=== PATIENT | female | born 1985 | race Caucasian/White ===

== ENCOUNTER 2017-11-17 14:36 | Emergency (ER) | payer OTHER ==
[2017-11-17 14:52] VITALS: BMI 26.9
[2017-11-17 14:57] VITALS: TEMP 98.3
[2017-11-17] MEDS ORDERED: Sodium Chloride 0.9% 1,000 ML IV STA (14:58)
--- NOTE | 2017-11-17 15:11 | ED PDOC ---
Arrival/HPI - General Chief Complaint: Fever Time Seen by Provider: 11/17/17 14:48 Historian: Patient - History of Present Illness Narrative History of Present Illness (Text): 11/17/17 15:07 32yo female who present with complaint of generalized weakness, subjective fever, vomiting and headache. the by the bedside states she is currently 8weeks and started having the above symptoms this morning. Patient states she feels hot. Notes that she had one episode of nonbloody/bilious vomiting today. Denies neck pain, abdominal pain, chills, URI symptoms, urinary symptoms, vaginal bleeding,sick contact, travel, any other complaint. Past Medical History - Provider Review Nursing Documentation Reviewed: Yes - Infectious Disease Hx of Infectious Diseases: None - Psychiatric Hx Substance Use: No - Surgical History Hx Section: Yes (2) Family/Social History - Physician Review Nursing Documentation Reviewed: Yes Family/Social History: Unknown Family HX Smoking Status: Never Smoked Hx Alcohol Use: No Hx Substance Use: No Allergies/Home Meds Allergies/Adverse Reactions: Allergies No Known Allergies Allergy (Verified 11/17/17 14:58) Home Medications: Home Meds Medication Instructions Recorded Confirmed No Known Home Med 11/17/17 11/17/17 Review of Systems - Physician Review All systems were reviewed & negative as marked: Yes - Review of Systems Constitutional: Fatigue, Fevers Eyes: Normal ENT: Normal Respiratory: Normal Cardiovascular: Normal Gastrointestinal: Nausea, Vomiting. absent: Abdominal Pain, Constipation, Diarrhea, Hematochezia, Hematemesis Genitourinary Female: Normal Musculoskeletal: Normal Skin: Normal Neurological: Headache. absent: Dizziness, Focal Weakness Endocrine: Normal Hemo/Lymphatic: Normal Psychiatric: Normal Physical Exam Vital Signs Reviewed: Yes Vital Signs Temp Pulse Resp BP Pulse Ox 11/17/17 16:51 98.3 F 70 19 120/73 100 11/17/17 14:56 98.3 F 69 18 113/72 98 Temperature: Afebrile Blood Pressure: Normal Pulse: Regular Respiratory Rate: Normal Appearance: Positive for: Well-Appearing, Non-Toxic, Comfortable Pain Distress: None Mental Status: Positive for: Alert and Oriented X 3 - Systems Exam Head: Present: Atraumatic, Normocephalic Pupils: Present: PERRL Extroacular Muscles: Present: EOMI Conjunctiva: Present: Normal Mouth: Present: Moist Mucous Membranes Neck: Present: Normal Range of Motion Respiratory/Chest: Present: Clear to Auscultation, Good Air Exchange. No: Respiratory Distress, Accessory Muscle Use Cardiovascular: Present: Regular Rate and Rhythm, Normal S1, S2. No: Murmurs Abdomen: Present: Other (soft). No: Tenderness, Distention, Peritoneal Signs, Rebound, Guarding, McBurney's Point Tender, Rovsing's Sign Present Back: Present: Normal Inspection Upper Extremity: Present: Normal Inspection. No: Cyanosis, Edema Lower Extremity: Present: Normal Inspection. No: Edema Neurological: Present: GCS=15, CN II-XII Intact, Speech Normal, Motor Func Grossly Intact, Normal Sensory Function, Normal Cerebellar Funct, Norm Deep Tendon Reflexes, Gait Normal, Memory Normal, Normal 2Pt Descrimination, Other ( No focal neurological deficit) Skin: Present: Warm, Dry, Normal Color. No: Rashes Psychiatric: Present: Alert, Oriented x 3, Normal Insight, Normal Concentration Medical Decision Making ED Course and Treatment: 11/17/17 19:40 PT presented to ED with her for stated history. She was offered antiemesis and she declined it in ED. She was hydrated. Lab was reviewed and unremarkable. The states patient saw her OB few days ago. She was advised to f/u with her OB. She denies vaginal bleeding and abdominal pain in ED. She requested to be DC and tolerate PO challenge. - Lab Interpretations Lab Results: 11/17/17 15:02 11/17/17 15:02 Lab Results 11/17/17 15:09: Urine Color Yellow, Urine Appearance Clear, Urine pH 7.0, Ur Specific Holmes 1.015, Urine Protein Trace H, Urine Glucose (UA) Negative, Urine Ketones Negative, Urine Blood Negative, Urine Nitrate Negative, Urine Bilirubin Negative, Urine Urobilinogen 0.2, Ur Leukocyte Esterase Negative, Urine RBC 1 - 3, Urine WBC 2 - 5, Ur Epithelial Cells 6 - 8, Amorphous Sediment Few, Urine Bacteria Many, Urine Other Uyeast 11/17/17 15:02: Beta HCG, Quant 35032.00 H 11/17/17 15:02: Sodium 137, Potassium 4.1, Chloride 104, Carbon Dioxide 22, Anion Gap 15, BUN 6 L, Creatinine 0.4 L, Est GFR ( Amer) > 60, Est GFR ( Non-Af Amer) > 60, Random Glucose 93, Calcium 9.2, Magnesium 1.8, Total Bilirubin 0.8, AST 32, ALT 53, Alkaline Phosphatase 58, Total Protein 7.8, Albumin 4.2, Globulin 3.6, Albumin/Globulin Ratio 1.2, Lipase 44 11/17/17 15:02: PT 14.6 H, INR 1.27 H, APTT 29.2 11/17/17 15:02: WBC 7.3, RBC 4.39, Hgb 11.5 L, Hct 33.7 L, MCV 76.8 L, MCH 26.2 , MCHC 34.1, RDW 13.6, Plt Count 228, MPV 11.0, Gran % 74.4 H, Lymph % (Auto) 19.6 L, Jewell % (Auto) 5.1, Eos % (Auto) 0.8 L, Baso % (Auto) 0.1, Gran # 5.43, Lymph # (Auto) 1.4, Jewell # (Auto) 0.4, Eos # (Auto) 0.1, Baso # (Auto) 0.01 - Medication Orders Current Medication Orders: Discontinued Medications Acetaminophen (Tylenol 325mg Tab) 650 mg PO STAT STA Stop: 11/17/17 15:00 Last Admin: 11/17/17 15:07 Dose: 650 mg MAR Pain/Vitals Document 11/17/17 15:07 OCS (Rec: 11/17/17 15:08 [facility] [id number]) Pain Reassessment Is This A Pain ReAssessment? No Sleep Is patient sleeping during reassessment? No Presence of Pain Presence of Pain No Pain Scale Used Pain Scale Used Numeric Location Pain Location Body Site Generalized Sodium Chloride (Sodium Chloride 0.9%) 1,000 mls @ 1,000 mls/hr IV .Q1H STA Stop: 11/17/17 15:57 Last Admin: 11/17/17 15:06 Dose: 1,000 mls/hr eMAR Start Stop Document 11/17/17 15:06 OCS (Rec: 11/17/17 15:07 OCS [id number]) Intravenous Solution Start Date 11/17/17 Start Time 15:07 End Date 11/17/17 End time 16:07 Total Infusion Time 60 Disposition/Present on Arrival - Present on Arrival Any Indicators Present on Arrival: No History of DVT/PE: No History of Uncontrolled Diabetes: No Urinary Catheter: No History of Decub. Ulcer: No History Surgical Site Infection Following: None - Disposition Have Diagnosis and Disposition been Completed?: Yes Diagnosis: Vomiting, Malaise, Disposition: HOME/ ROUTINE Disposition Time: 16:15 Patient Plan: Discharge Condition: STABLE Discharge Instructions (ExitCare): Nausea and Vomiting, Adult Additional Instructions: Follow up with your OB Return to ED for any new or worsening symptoms Referrals: Marjorie Dillon MD [Staff Provider] - Follow up with primary Forms: [employer] (Khmer)
[2017-11-17 15:16] LABS: URINE BILIRUBIN NEGATIVE (NEGATIVE); URINE BLOOD NEGATIVE (NEGATIVE); URINE GLUCOSE (UA) NEGATIVE (NEGATIVE); URINE LEUKOCYTE ESTERASE NEGATIVE Leu/uL (NEGATIVE); URINE PROTEIN TRACE mg/dL (<30 mg/dL); URINE UROBILINOGEN 0.2 E.U./dL (<1 E.U./dL)
[2017-11-17 15:17] LABS: URINE APPEARANCE CLEAR (CLEAR); URINE COLOR YELLOW (YELLOW)
[2017-11-17 15:27] LABS: URINE AMORPHOUS SEDIMENT FEW; URINE BACTERIA MANY (NEG)
[2017-11-17 15:36] LABS: BASO # 0.01 K/mm3 (0.0-2.0); BASO % 0.1 % (0.0-3.0); EOS # 0.1 (0.0-0.7); EOS % 0.8 % (1.5-5.0); GRAN # 5.43 (1.4-6.5); GRAN % 74.4 % (50.0-68.0); HEMOGLOBIN 11.5 g/dL (12.0-16.0); LYMPH # 1.4 (1.2-3.4); LYMPH % 19.6 % (22.0-35.0); MEAN CELL VOLUME 76.8 fl (80.0-105.0); MEAN CORPUSCULAR HEMOGLOBIN 26.2 pg (25.0-35.0); MEAN CORPUSCULAR HGB CONC 34.1 g/dl (31.0-37.0); MONO # 0.4 (0.1-0.6); MONO % 5.1 % (1.0-6.0); RBC 4.39 10^6/uL (3.5-6.1); RED CELL DISTRIBUTION WIDTH 13.6 % (11.5-14.5); WHITE BLOOD COUNT 7.3 10^3/ul (4.5-11.0)
[2017-11-17 15:53] LABS: PROTHROMBIN TIME 14.6 SECONDS (9.4-12.5)
[2017-11-17 15:54] LABS: INR 1.27 (0.93-1.08); PARTIAL THROMBOPLASTIN TIME 29.2 Seconds (25.1-36.5)
[2017-11-17 16:03] LABS: ALB/GLOB RATIO 1.2 (1.1-1.8); ALBUMIN 4.2 g/dL (3.0-4.8); ALT/SGPT 53 U/L (7-56); AST/SGOT 32 U/L (14-36); BLOOD UREA NITROGEN 6 mg/dL (7-21); CALCIUM 9.2 mg/dL (8.4-10.5); GFR AFRICAN-AMERICAN > 60; GFR NON-AFRICAN AMERICAN > 60; LIPASE 44 U/L (23-300)
[2017-11-17 17:03] VITALS: BP 120/73; PULSE 70; RESP 19; O2SAT 100
== END 2017-11-17 16:51 | disposition home or self-care (01) ==
LOC: ED 14:36
DX: O21.9 Vomiting of pregnancy, unspecified (principal); O26.811 Pregnancy related exhaustion and fatigue, first trimester; Z3A.08 8 weeks gestation of pregnancy
CPT/HCPCS: 80053; 81001; 83690; 83735; 84702; 85025; 85610; 85730; 96360; 99283; J7030